=== PATIENT | male | born 1945 | race Caucasian/White ===

== ENCOUNTER → 2018-01-22 | Outpatient (CLI) | payer OTHER ==
[~2018-01-22] MED LIST: ASPIRIN325 MG PO; ATORVASTATIN CA40 MG PO; BACTRIM,SEPT1 TABLET PO; CLEOCIN150 MG PO; Coumadin,Jantoven PO; Cymbalta PO; Feosol PO; Flomax PO; Glucophage PO; Hydrodiuril,Oretic,E PO; Januvia PO; LINZESS145 MCG PO; LINZESS290 MCG PO; LORTAB 5-325 M1 EACH PO; Lotrel 5/20 PO; Lumigan 0.01% Ophth BOTH EYES; MAGNESIUM250 MG PO; METFORMIN HCL1000 MG PO; Nitrostat,NitroQuick SL; PRILOSEC40 MG PO; SIMVASTATIN20 MG PO; TRAMADOL HCL50 MG PO; Toprol XL PO; Ultram PO; Zocor PO
== END | disposition home or self-care (01) ==
DX: Z01.818 Encounter for other preprocedural examination (principal); M17.12 Unilateral primary osteoarthritis, left knee; R26.2 Difficulty in walking, not elsewhere classified; M25.562 Pain in left knee; M25.662 Stiffness of left knee, not elsewhere classified; M62.81 Muscle weakness (generalized); Z74.1 Need for assistance with personal care
CPT/HCPCS: 97161 GP; 97165 GO; 97530 GP; 97535 GO; G8978 GP; G8979 GP; G8980 GP; G8987 GO; G8988 GO; G8989 GO

== ENCOUNTER 2018-02-11 06:33 | Inpatient (IN) | payer OTHER ==
[~2018-02-11] VITALS: Ht 177.8 cm; Wt 114.0 kg
[~2018-02-11 06:33] MED LIST changes: +BREO ELLIPTA I1 EACH IH; +LO-DOSE ASPIRIN81 M2 PO; +PAXIL10 MG PO
[2018-02-11 07:33] VITALS: BP 162/74
[2018-02-11 13:46] LABS: HEMATOCRIT 34.5 % (38.0-50.0); HEMOGLOBIN 11.5 G/DL (12.5-16.6); MCH 30.3 PG (29.0-34.0); MCHC 33.3 G/DL (30.0-36.0); MCV 90.8 FL (86-99); PLATELET COUNT 204 K/uL (156-360); RBC DIS.WIDTH-CV 12.8 % (11.8-14.6); RBC DIS.WIDTH-SD 42.9 % (39-53); WHITE BLOOD COUNT 16.4 K/uL (4.1-10.2)
[2018-02-11 14:49] VITALS: BP 131/60
[2018-02-11 16:00] VITALS: BP 128/65
[2018-02-11 19:54] VITALS: BP 126/60
[2018-02-11 23:35] VITALS: BP 149/70
[2018-02-12 03:54] VITALS: BP 146/69
[2018-02-12 06:39] LABS: HEMATOCRIT 35.2 % (38.0-50.0); HEMOGLOBIN 12.1 G/DL (12.5-16.6); MCV 89.8 FL (86-99)
[2018-02-12 07:06] LABS: CHLORIDE 105 MEQ/L (99-109); CREATININE 1.1 MG/DL (0.6-1.3); GFR ESTIMATE (CALCULATED) > 59 mL/min/ (58.99-99999); GLUCOSE 125 mg/dL (70-99); POTASSIUM 4.2 MEQ/L (3.7-5.4); SODIUM 139 MEQ/L (136-147); UREA NITROGEN (BUN) 18 mg/dL (9-23)
[2018-02-12 07:52] VITALS: BP 133/63
[2018-02-12 12:07] VITALS: BP 156/71
[2018-02-12 16:00] VITALS: BP 120/56
[2018-02-12 19:47] VITALS: BP 170/77
[2018-02-12 23:32] VITALS: BP 151/67
[2018-02-13 04:15] VITALS: BP 168/74
[2018-02-13 05:44] LABS: HEMATOCRIT 29.8 % (38.0-50.0); HEMOGLOBIN 10.3 G/DL (12.5-16.6); MCV 89.5 FL (86-99)
[2018-02-13 07:35] LABS: BASOPHIL (%) 0.2 % (0-1); EOSINOPHIL (%) 0.2 % (0-5); IMMATURE GRANULOCYTE (%) 0.4 % (0.0-0.7); LYMPHOCYTE (%) 7.4 % (15-42); MCH 30.8 PG (29.0-34.0); MCHC 34.2 G/DL (30.0-36.0); MONOCYTE (%) 10.1 % (3-12); MONOCYTE COUNT 1.3 K/uL (0-0.8); NEUTROPHIL (%) 81.7 % (45-76); NEUTROPHIL COUNT 10.8 K/uL (1.8-6.4); PLATELET COUNT 195 K/uL (156-360); RBC DIS.WIDTH-CV 13.1 % (11.8-14.6); RBC DIS.WIDTH-SD 43.2 % (39-53); RED BLOOD COUNT 3.34 M/uL (4.00-5.50); WHITE BLOOD COUNT 13.2 K/uL (4.1-10.2)
[2018-02-13 08:00] VITALS: BP 184/79
[2018-02-13] MEDS ORDERED: OXYCODONE HCL5 MG PO (08:23)
[2018-02-13] MEDS ORDERED: CELECOXIB200 MG PO (08:23)
[2018-02-13] MEDS ORDERED: DOCUSATE SODIU100 MG PO (08:23)
[2018-02-13] MEDS ORDERED: ELIQUIS2.5 MG PO (08:23)
[2018-02-13 08:37] LABS: APPEARANCE SL.HAZY ((CLEAR)); BILIRUBIN NEGATIVE; BLOOD LARGE; COLOR YELLOW ((YELLOW)); GLUCOSE (STRIP) NEGATIVE; KETONES NEGATIVE; LEUKOCYTES SMALL; NITRITE NEGATIVE; PROTEIN (STRIP) NEGATIVE; SPECIFIC GRAVITY 1.008 (1.000-1.030); UROBILINOGEN 0.2 MG/DL (0.2-1.0)
[2018-02-13 09:01] LABS: BACTERIA RARE /HPF; EPITHELIAL CELLS NONE SEEN /HPF; MUCUS TRACE /LPF; RED BLOOD CELLS TNTC /HPF (0-5)
[2018-02-13 11:45] VITALS: BP 141/71
[2018-02-13 15:36] VITALS: BP 140/61
== END 2018-02-13 16:40 | DRG 470 ==
LOC: 3WEST 06:33 → 2SOUTH 06:33 → ENRESERV 12:10 → 2SOUTH 13:34 → 3WEST 14:07
PROVIDERS: Orthopaedic Surgery
PROC: 0SRD0J9 Replacement of Left Knee Joint with Synthetic Substitute, Cemented, Open Approach (ICD-10-PCS; principal; 2018-02-11)
DX: M17.12 Unilateral primary osteoarthritis, left knee (principal); I10 Essential (primary) hypertension; G47.33 Obstructive sleep apnea (adult) (pediatric); E11.9 Type 2 diabetes mellitus without complications; J44.9 Chronic obstructive pulmonary disease, unspecified; G25.0 Essential tremor; K21.9 Gastro-esophageal reflux disease without esophagitis; H40.9 Unspecified glaucoma; Z96.651 Presence of right artificial knee joint; G89.29 Other chronic pain; Z95.5 Presence of coronary angioplasty implant and graft; Z86.72 Personal history of thrombophlebitis; Z82.49 Family history of ischemic heart disease and other diseases of the circulatory system
CPT/HCPCS: 73560; 80048; 81003; 82948; 85014; 85018; 85025; 85025 91; 85027; 87077; 87086; 87186; 94640; C1713; J0330; J0690; J1100; J1170; J1815; J2250; J2405; J2710; J3010; J7050; J7643